=== PATIENT | male | born 1990 | race Two or more races ===

== ENCOUNTER 2021-10-27 00:01 | Emergency (ER) | payer SELFPAY ==
[2021-10-27] MEDS ORDERED: Bacitracin 1 PK ONE (00:47)
[2021-10-27] MEDS ORDERED: Boostrix 0.5 ML (Tdap) VIAL ONE (00:47)
== END 2021-10-27 01:05 | disposition home or self-care (01) ==
LOC: ERS 00:01
DX: S61.311A Laceration without foreign body of left index finger with damage to nail, initial encounter (principal); Z23 Encounter for immunization; W26.0XXA Contact with knife, initial encounter
CPT/HCPCS: 90471; 90715